=== PATIENT | male | born 1995 | race American Indian/Alaskan Native ===

== ENCOUNTER 2017-02-11 23:38 | Emergency (ER) | payer SELFPAY ==
[2017-02-11] MEDS ORDERED: NACL 0.9% 1000 ML 1,000 ML IV ONE (23:52)
--- NOTE | 2017-02-12 00:01 | Emergency Department Report ---
HPI - General Chief Complaint: Altered Mental Status Time Seen by Provider: 02/11/17 23:52 - HPI HPI: This is a 21-year-old [place] male presents to the emergency department by EMS originally with complaint of being unresponsive. The patient was found by his unresponsive on the bathroom floor and she called for the ambulance. EMS gave him 1 mg of Narcan as they were told that sometimes he will take some Percocet but it did not appear to have much of a response. Once in the ambulance, the patient appeared to have a seizure and was given 2 mg of Ativan. He continued to be mostly unresponsive but towards the end of their trip to the emergency department he became slightly agitated. When he got to the emergency department, as we were attempting to transfer him to the [facility], the patient became very agitated and almost jumped off the gurney to the floor but was caught by the ER staff. He is currently starting to become more awake and while he is still agitated he is able to now tell me his name and say that he drank alcohol this evening. It does not appear that he has any seizure history. The patient is now more awake and alert. When I told him that he was acting very agitated and aggressive when he first got here and that he almost fell to the floor, jumping off the rney, the patient says "that's because nobody has been seeing what I saw on my eyes were closed." The patient says that he saw monsters and people coming after him that are trying to harm him and/or kill him. The patient and his , who is now bedside, say that he was recently diagnosed with bipolar disorder and/or schizophrenia. He says that he has not started any medication, despite the physicians attempt, because he does not want to be on any medication and he "stopped them." The says that even prior to the unresponsive episode this evening, that the patient appeared agitated. He said that he drank 5 shots of Josee this evening. ED Past Medical Hx - Past Medical History Previous Medical History?: Yes Hx Psychiatric Treatment: Yes (bipolar) ED Review of Systems ROS: Stated complaint: UNRESPONSIVE Other details as noted in HPI Comment: Unobtainable due to pts medical conditions Physical Exam - Physical Exam Vital Signs: Vital Signs 02/11/17 02/11/17 02/11/17 23:43 23:49 23:55 Temperature 101.1 F H 101.1 F H Pulse Rate 123 H 139 H Respiratory 22 Rate Blood Pressure 165/84 [Right] O2 Sat by Pulse 97 Oximetry Physical Exam: GENERAL: The patient is well-developed well-nourished. HENT: Normocephalic. Atraumatic. Patient has moist mucous membranes. EYES: Pupils equal reactive to light bilaterally. NECK: Supple. Trachea is midline. CHEST/LUNGS: Clear to auscultation. There is no respiratory distress noted. HEART/CARDIOVASCULAR: Regular. There is moderate tachycardia. There is no gallop rub or murmur. ABDOMEN: Abdomen is soft, nontender. Patient has normal bowel sounds. There is no abdominal distention. SKIN: Skin is warm and dry. NEURO: The patient presented appearing almost unresponsive but all of a sudden became awake but agitated and confused. Not following any commands. Slightly combative. MUSCULOSKELETAL: There is no tenderness or deformity. There is no limitation range of motion. There is no evidence of acute injury. ED Course Vital Signs 02/11/17 02/11/17 02/11/17 23:43 23:49 23:55 Temperature 101.1 F H 101.1 F H Pulse Rate 123 H 139 H Respiratory 22 Rate Blood Pressure 165/84 [Right] O2 Sat by Pulse 97 Oximetry ED Medical Decision Making - Lab Data Result diagrams: 02/11/17 23:55 02/11/17 23:55 - EKG Data -: EKG Interpreted by Me EKG shows normal: sinus rhythm, axis, intervals, QRS complexes, ST-T waves Rate: tachycardia (138 bpm) - EKG Data When compared to previous EKG there are: previous EKG unavailable Interpretation: other (Sinus tachycardia at 138 bpm) - Radiology Data Radiology results: image reviewed interpreted by me: Chest x-ray does not show any acute process. There are no pleural effusions, obvious pneumonia and there is no pneumothorax. - Medical Decision Making This patient initially presented after being found unresponsive at home. It appeared possibly consistent with alcohol intoxication or drug overdose. However labs showed the blood alcohol was only 0.07 and the UDS was eventually negative. At first the patient appeared unresponsive but as soon as the seatbelts were taken off of the EMS gurney, the patient almost jumped off of the gurney onto the floor. ED staff, including myself, over there to catch him so that he did not have any trauma. At this point however the patient became very agitated and combative. He required soft wrist and ankle restraints so that the patient could not harm any of the staff, nor himself. At this point we obtained blood and urine for evaluation. He came in with a fever of 101 Fahrenheit and some moderate tachycardia. Shortly after this, the patient displayed that he was becoming more awake and alert. He still was very agitated and appeared slightly angry but given the fact that the patient is just now becoming oriented in the emergency department with multiple people attending to him, it is not a surprise. At this point he was redirectable and allowed for us to continue the workup. I went back and spoke with him about 1 hour later and it is at this point that he and she had the previous and/or recent diagnosis of bipolar disorder and possible schizophrenia and mentioned some of the hallucinations and/or delusions that he has and/or had. He was made a 1013 briefly as I was concerned that the patient displayed acute psychosis and would not be able to take care of himself or could be a danger to himself or others. We continued working up him medically including a chest x- ray to look for a source of his fever and his recent cough but it did not show any signs of pneumonia, pleural effusions or any other acute process. He was given 2 L of IV fluid resuscitation and eventually his heart rate came down to a much more reasonable level. At this point the patient is awake, alert and oriented to person place and time and seems much more appropriate. I had the crisis counselor come and speak with the patient and he agrees that at this point he does not appear to be bacteria for a 1013 or to be inpatient admission for psychiatric care. Since the patient is of sound mind, calm, appropriate and is not appeared to be 813 candidate any longer, I rescinded the previous 1013 the patient will be discharged home. I did speak to him in great detail about bipolar disorder, schizophrenia, and the importance of seeking counseling or medication to have these conditions controlled before he ends up in a bad situation. He was given referrals for primary care and the [facility]. He will return to the ER with any worsening of symptoms or any acute distress. His was bedside for the majority of his workup and will make sure that he gets home safely. Critical Care Time: No Critical care attestation.: If time is entered above; I have spent that time in minutes in the direct care of this critically ill patient, excluding procedure time. ED Disposition Clinical Impression: Seizure-like activity Altered mental status Qualifiers: Altered mental status type: transient alteration of awareness Qualified Code(s) : R40.4 - Transient alteration of awareness Fever Qualifiers: Fever type: unspecified Qualified Code(s): R50.9 - Fever, unspecified Disposition: DC-01 TO HOME OR SELFCARE Is pt being admited?: No Condition: Stable Instructions: Fever in Adults (ED), Abuse of Alcohol (ED), Altered Mental Status (ED) Additional Instructions: Please follow up with a primary care physician in the next few days. Return to the emergency Department with any worsening of your symptoms, any further episodes of passing out or seizure like activity, intractable fever, or any acute distress. I have given you a referral for the [facility] facility in case he would like to follow up regarding your recent diagnosis of bipolar disorder. You can take Tylenol every 4 hours and ibuprofen every 6 hours, using weight- based dosing, as needed for fever or discomfort. Referrals: [facility] [Outside] - [facility] - [facility] Time of Disposition: 04:11
[2017-02-12 00:03] LABS: Urine Drugs of Abuse Note Disclamer
[2017-02-12 00:12] LABS: Basophils % (Auto) 0.5 % (0.0-1.8); Hematocrit 47.4 % (35.5-45.6); Hemoglobin 15.6 gm/dl (11.8-15.2); Mean Corpuscular HGB Conc 33 % (32-34); Mean Corpuscular Volume 78 fl (84-94); Platelet Count 265 K/mm3 (140-440); Red Blood Count 6.07 M/mm3 (3.65-5.03); Red Cell Distribution Width 13.6 % (13.2-15.2); White Blood Count 10.7 K/mm3 (4.5-11.0)
[2017-02-12 00:25] LABS: Bilirubin,Urine NEG (Negative); Blood,Urine SM (Negative); Ketones,Urine NEG (Negative); Leukocyte Esterase,Urine NEG (Negative); Nitrite,Urine NEG (Negative); Protein,Urine <15 mg/dL mg/dL (Negative)
[2017-02-12 00:31] LABS: Alanine Aminotransferase 32 units/L (7-56); Albumin 4.7 g/dL (3.9-5); Albumin/Globulin Ratio 1.5 %; Alkaline Phosphatase 74 units/L (35-129); Anion Gap 23 mmol/L; BUN/Creatinine Ratio 7; Blood Urea Nitrogen 7 mg/dL (9-20); Calcium 9.8 mg/dL (8.4-10.2); Carbon Dioxide 25 mmol/L (22-30); Creatine Kinase 320 units/L (55-170); Glucose 93 mg/dL (75-100); Potassium 3.5 mmol/L (3.6-5.0); Sodium 143 mmol/L (137-145); Total Protein 7.9 g/dL (6.3-8.2)
[2017-02-12 00:37] LABS: Mean Corpuscular Hemoglobin 26 pg (28-32)
[2017-02-12] MEDS ORDERED: TYLENOL PO ONE (00:39)
[2017-02-12] MEDS ORDERED: TORADOL IV ONE (00:54)
[2017-02-12] MEDS ORDERED: NACL 0.9% 1000 ML 1,000 ML IV ONE (01:52)
[2017-02-12 04:05] VITALS: BP 124/86
--- NOTE | 2017-02-12 07:26 | XRay Report ---
AP CHEST: HISTORY: Fever, cough AP view of the chest demonstrates a normal mediastinal and cardiac contour with clear lungs and normal bony and soft tissue structures. IMPRESSION: Unremarkable AP chest.
== END 2017-02-12 04:30 | disposition home or self-care (01) ==
LOC: ED 23:38
DX: R40.4 Transient alteration of awareness (principal); R56.9 Unspecified convulsions; R50.9 Fever, unspecified; F31.9 Bipolar disorder, unspecified
CPT/HCPCS: 36415; 71010; 80053; 80307; 81001; 82550; 84484; 85025; 87400; 93005; 93010; 96361; 96374; 99285; G0480; J1885; J7030; 80320